=== PATIENT | male | born 1990 | race Caucasian/White ===

== ENCOUNTER 2023-07-30 19:52 | Emergency (ER) | payer SELFPAY ==
[~2023-07-30] VITALS: Ht 182.9 cm; Wt 97.5 kg
[2023-07-30] MEDS ORDERED: TDAP [DIPH/PERTUSSIS/TET] 0.5 ML VIAL IM ONE (20:30)
[2023-07-30] MEDS ORDERED: LIDOCAINE 1%-EPI 1:100,000 20 ML VIAL ONE (20:30)
[2023-07-30] MEDS: LIDOCAINE 1%-EPI 1:100,000 20 ML VIAL TP ONE (20:44)
[2023-07-30] MEDS: TDAP [DIPH/PERTUSSIS/TET] 0.5 ML VIAL IM ONE (20:44)
[2023-07-30 21:53] VITALS: BP 137/83; TEMP 98.8; O2SAT 99
== END 2023-07-30 21:56 | disposition home or self-care (01) ==
LOC: ER 19:57
DX: S71.112A Laceration without foreign body, left thigh, initial encounter (principal); Z88.0 Allergy status to penicillin; Z88.8 Allergy status to other drugs, medicaments and biological substances; W26.8XXA Contact with other sharp object(s), not elsewhere classified, initial encounter; Y93.89 Activity, other specified; Y92.89 Other specified places as the place of occurrence of the external cause; Y99.8 Other external cause status
CPT/HCPCS: 12002; 90471; 90715; 99283; J3490